=== PATIENT | male | born 1950 | race Caucasian/White ===

== ENCOUNTER 2024-03-10 09:39 | Emergency (ER) | payer MEDICARE, OTHER ==
[~2024-03-10] VITALS: Ht 182.8 cm; Wt 113.4 kg
[2024-03-10] MEDS ORDERED: FLOMAX0.4 MG PO (10:00)
[2024-03-10] MEDS ORDERED: NORVASC10 MG PO (10:01)
[2024-03-10] MEDS ORDERED: TRIAMTERENE-HC1 EACH PO (10:01)
[2024-03-10] MEDS ORDERED: BENAZEPRIL20 MG PO (10:01)
[2024-03-10] MEDS ORDERED: NEXIUM 24HR20 M1 PO (10:02)
[2024-03-10] MEDS ORDERED: Bacitracin Zinc 14 GM TUBE T ONE (12:00)
== END 2024-03-10 14:10 | disposition home or self-care (01) ==
LOC: ED 09:39
DX: S01.81XA Laceration without foreign body of other part of head, initial encounter (principal); Z90.49 Acquired absence of other specified parts of digestive tract; Z96.653 Presence of artificial knee joint, bilateral; W10.8XXA Fall (on) (from) other stairs and steps, initial encounter; Y93.01 Activity, walking, marching and hiking; Y92.009 Unspecified place in unspecified non-institutional (private) residence as the place of occurrence of the external cause; Y99.8 Other external cause status